=== PATIENT | male | born 1990 | race Caucasian/White ===

== ENCOUNTER 2018-11-28 20:28 | Emergency (ER) | payer SELFPAY ==
[~2018-11-28] VITALS: Ht 175.3 cm; Wt 96.2 kg
--- OUTSIDE RECORDS SUMMARY | 2018-11-28 20:31 | XMS REPORT | Clinical Summary ---
Author Author [facility] Address Unknown Phone Unavailable Care Team Providers Care Energy Analyst Name Role Phone Pcp, No PCP Unavailable Allergies Comments Active Allergy Reactions Severity Noted Date Amoxicillin-Pot 11/14/2018 Clavulanate Medications End Date Status Medication Sig Dispensed Refills Start Date 11/28/2018 Active chlorhexidine (PERIDEX) Use as 120 mL 0 0.12 % solution directed 15 9 mLs in the mouth or throat 2 (two) times daily for 14 days. 11/14/2019 Active naproxen (NAPROSYN) 500 Take 1 tablet 30 tablet 0 MG tablet (500 mg 9 total) by mouth 2 (two) times daily with breakfast and dinner. 11/21/2018 clindamycin (CLEOCIN) 300 Take 1 21 capsule 0 MG capsule capsule (300 9 mg total) by mouth 3 (three) times daily for 7 days. 11/24/2018 acetaminophen-codeine Take 1 tablet 20 tablet 0 (TYLENOL #4) 300-60 mg by mouth 9 per tablet every 4 (four) hours as needed for Pain for up to 10 days. Max Daily Amount: 6 tablets Active Problems Not on file Encounters Care Team Description Date Type Specialty Kae Ambrosio MD Dental infection (Primary Dx); Dental caries; Dental abscess; Acute gingivitis, plaque induced 11/14/2018 Emergency Emergency Medicine after 11/27/2017 Social History Date Tobacco Use Types Packs/Day Years Used Never Assessed Sex Assigned at Date Recorded Not on file Industry Job Start Date Occupation Not on file Not on file Not on file Travel End Travel History Travel Start No recent travel history available. Last Filed Vital Signs Time Taken Vital Sign Reading 11/14/2018 11:50 AM [employer] Blood Pressure 131/87 11/14/2018 11:49 AM [employer] Pulse 78 11/14/2018 11:49 AM [employer] Temperature 36.7 C (98 F) 11/14/2018 11:49 AM [employer] Respiratory Rate 16 11/14/2018 11:49 AM [employer] Oxygen Saturation 98% - Inhaled Oxygen - Concentration 11/14/2018 11:49 AM [employer] Weight 95.3 kg (210 lb) - Height - - Body Mass Index - Plan of Treatment Not on file Results Not on fileafter 11/27/2017
[2018-11-28] MEDS ORDERED: ONDANSETRON HCL INJ 2MG/ML 2ML 2 MG/ML VIAL ONE (20:59)
[2018-11-28] MEDS ORDERED: SODIUM CHLORIDE 0.9% 1000ML 1,000 ML IV STA (21:40)
[2018-11-28] MEDS ORDERED: PANTOPRAZOLE 40 MG 10ML VIAL IV STA (21:40)
[2018-11-28] MEDS ORDERED: ONDANSETRON HCL INJ 2MG/ML 2ML 2 MG/ML VIAL IV STA (21:43)
[2018-11-28 21:55] LABS: BASOPHILS % 0.5 % (0.0-1.0); EOSINOPHILS # (AUTO) 0.1 (0.0-0.4); EOSINOPHILS % 1.6 % (0.0-6.0); HEMATOCRIT 40.4 % (38.2-49.6); HEMOGLOBIN 12.5 g/dL (14.0-18.0); LYMPHOCYTES # (AUTO) 3.5 (1.0-3.2); LYMPHOCYTES % 47.4 % (18.0-39.1); MEAN CORPUSCULAR HGB CONC 30.9 g/dL (31-35); MEAN CORPUSCULAR VOLUME 77.5 fL (81-99); MONOCYTES # (AUTO) 0.8 (0.2-0.8); MONOCYTES % 10.4 % (4.4-11.3); NEUTROPHILS # (AUTO) 2.9 (2.1-6.9); NEUTROPHILS % 39.8 % (38.7-80.0); PLATELET COUNT 329 x10e3/uL (140-360); RED BLOOD COUNT 5.21 x10e6/uL (4.3-5.7); RED CELL DISTRIBUTION WIDTH 17.2 % (11.7-14.4)
[2018-11-28 22:09] LABS: ALANINE AMINOTRANSFERASE 30 IU/L (0-55); ALBUMIN 4.1 g/dL (3.5-5.0); ALBUMIN/GLOBULIN RATIO 1.2 (0.8-2.0); ALKALINE PHOSPHATASE 62 IU/L (40-150); BLOOD UREA NITROGEN 22 mg/dL (7-26); BUN/CREATININE RATIO 21 (6-25); CALCIUM 8.9 mg/dL (8.4-10.2); CARBON DIOXIDE 23 mmol/L (22-29); CHLORIDE 105 mmol/L (98-107); CREATININE, SERUM 1.03 mg/dL (0.72-1.25); EST GLOMERULAR FILTRATION RATE > 60 ML/MIN (60-); GLUCOSE 95 mg/dL (74-118); LIPASE 30 U/L (8-78); SODIUM 138 mmol/L (136-145)
[2018-11-28] MEDS ORDERED: PROMETHAZINE HCL (IM) 25 MG/ML VIAL IM ONE (22:15)
[2018-11-28] MEDS ORDERED: DICYCLOMINE HCL 20 MG/2 ML VIAL IM ONE (22:30)
[2018-11-28] MEDS ORDERED: IOPAMIDOL 370 MG/ML 200 ML INFUS..BTL INJ ONE (22:41)
[2018-11-28] MEDS ORDERED: SODIUM CHLORIDE 0.9% 50ML 0 ML ONE (22:41)
--- NOTE | 2018-11-28 22:45 | NUR ---
DR. MUNGUIA AT BEDSIDE. PT STATES HE NEEDS MORE PAIN MEDICATION. PT STATED HE WANTED A STRONGER PAIN MEDICATION.
== END 2018-11-28 22:55 | disposition left against medical advice (07) ==
LOC: ER 20:28
DX: R11.2 Nausea with vomiting, unspecified (principal)
CPT/HCPCS: 36415; 80053; 83690; 85025; 86850; 86900; J2405; J2550; J7030; J0500; Q9967